=== PATIENT | female | born 1975 | race Caucasian/White ===

== ENCOUNTER 2020-12-10 08:22 | Inpatient (IN) ==
[2020-12-10] MEDS ORDERED: ONDANSETRON 4 MG/2 ML VIAL ONE (08:27)
[2020-12-10] MEDS ORDERED: HEPARIN 5,000 UNIT/1 ML VIAL ONE ×2 (08:28→08:42)
[2020-12-10] MEDS ORDERED: MORPHINE 4 MG/1 ML VIAL ONE (08:28)
[2020-12-10] MEDS ORDERED: ASPIRIN 325 MG TABLET ONE (08:28)
[2020-12-10] MEDS ORDERED: HEPARIN 5,000 UNIT/1 ML VIAL IV ONE (08:34)
[2020-12-10] MEDS ORDERED: ASPIRIN 325 MG TABLET PO STA (08:34)
[2020-12-10] MEDS ORDERED: MORPHINE 4 MG/1 ML VIAL IV STA (08:34)
[2020-12-10] MEDS ORDERED: ONDANSETRON 4 MG/2 ML VIAL IV STA (08:34)
[2020-12-10] MEDS ORDERED: HEPARIN/NACL 0.9% 2 UNITS/ML 2,000 UNIT/1,000 ML BAG IV ONE (08:35)
[2020-12-10] MEDS ORDERED: LIDOCAINE 1% 20 ML VIAL ONE (08:35)
[2020-12-10] MEDS ORDERED: EPTIFIBATIDE 20,000 MCG/10 ML VIAL ONE (08:44)
[2020-12-10] MEDS ORDERED: EPTIFIBATIDE 75 MG/100 ML BOTTLE IV ONE (08:44)
[2020-12-10 08:47] LABS: Basophils # 0.1 10*3/uL (0.0-0.2); Basophils % 0.8 % (0.0-0.8); Eosinophils # 0.2 10*3/uL (0.0-0.87); Eosinophils % 1.6 % (0.00-10.9); Hematocrit 40.8 VOL% (35.7-47.0); Hemoglobin 13.3 GM/DL (12.0-16.0); Immature Granulocytes % 0.3 %; Immature Granulocytes Absolute 0.04 #; Lymphocytes # 4.7 10*3/uL (1.4-4.0); Lymphocytes % 40.6 % (21.3-54.2); Mean Corpuscular HGB Conc 32.6 GM/DL (32-36); Mean Corpuscular Volume 91.3 FL (87-102); Mean Platelet Volume 10.8 FL (9.6-12.0); Monocytes % 8.3 % (1.7-12.7); Neutrophils % 48.4 % (38.7-73.9); Platelet Count 314 T/CUMM (130-400); Red Blood Count 4.47 MC/CUMM (3.8-5.5); Red Cell Distribution Width 13.2 % (9.3-17.3); White Blood Count 11.7 T/CUMM (4-12)
[2020-12-10] MEDS ORDERED: HEPARIN/NACL 0.9% 2 UNITS/ML 1,000 UNIT/500 ML BAG IV ONE (08:50)
[2020-12-10 08:54] LABS: INR 0.9; PT Patient Result 10.7 SECS (10.5-12.0); Partial Thromboplastin Time 24.2 SECS (23.9-33.8)
[2020-12-10] MEDS ORDERED: DOPamine 800 MG/250 ML PREMIX IV ONE (08:57)
[2020-12-10] MEDS ORDERED: MAGNESIUM SULF RIDER 4 GM/100 ML PREMIX IV PRN (08:58)
[2020-12-10] MEDS ORDERED: ONDANSETRON 4 MG/2 ML VIAL IV PRN (08:58)
[2020-12-10] MEDS ORDERED: MAGNESIUM SULF RIDER 2 GM/50 ML PREMIX IV PRN (08:58)
[2020-12-10] MEDS ORDERED: ALUMINUM/MAGNES/SIMETH MAX STR 30 ML UDCUP PO PRN (08:58)
[2020-12-10] MEDS ORDERED: ZALEPLON 5 MG CAPSULE PO PRN (08:58)
[2020-12-10] MEDS ORDERED: NICOTINE 21 MG/24 HR PATCH TRANSDERM PRN (08:58)
[2020-12-10] MEDS ORDERED: diphenhydrAMINE CAP 25 MG CAPSULE PO PRN (08:58)
[2020-12-10 09:01] LABS: Alanine Aminotransferase 23 U/L (13-56); Albumin 3.5 G/DL (3.4-5.0); Alkaline Phosphatase 102 U/L (45-117); Aspartate Amino Transferase 15 U/L (0-37); Bilirubin,Total < 0.39 MG/DL (0.2-1.0); Blood Urea Nitrogen 12 MG/DL (7-18); Calcium 8.8 MG/DL (8.5-10.1); Carbon Dioxide 22 MMOL/L (21-32); Estimated Glom Filtration Rate 81 ML/MIN; Glucose 151 MG/DL (74-106); Osmolality,Calculated 283.3 MOS/KG (273-304); Potassium 3.5 MMOL/L (3.5-5.1); Sodium 141 MMOL/L (136-145); Total Protein 6.4 G/DL (6.4-8.2)
[2020-12-10 09:07] LABS: Eosinophils 2 % (0-10); Hypochromasia 1+; Lymphocytes 45 % (20-55); Microcytosis 1+; Platelet Estimate Adequate; Segmented Neutrophils 42 % (50-85); Total Cells Counted 100
[2020-12-10 09:08] LABS: Atypical Lymphocytes Few
[2020-12-10] MEDS ORDERED: PROMETHAZINE 25 MG/1 ML VIAL ONE ×2 (09:09→09:10)
[2020-12-10] MEDS ORDERED: TICAGRELOR 90 MG TABLET ONE (09:35)
[2020-12-10 09:48] LABS: Risk Ratio 5.53; Thyroid Stimulating Hormone 1.46 uIU/ml (0.358-3.74); VLDL CHOLESTEROL 23.6 MG/DL
[2020-12-10] MEDS ORDERED: ACETAMINOPHEN 325 MG TABLET PO PRN (10:26)
[2020-12-10] MEDS ORDERED: MORPHINE 4 MG/1 ML VIAL IV PRN (10:26)
[2020-12-10] MEDS ORDERED: SODIUM CHLORIDE 0.9% 1,000 ML IV SCH (10:30)
[2020-12-10] MEDS ORDERED: PNEUMOCOCCAL VACCINE (23 VALENT) 0.5 ML VIAL IM ONE (13:47)
[2020-12-10] MEDS: PANTOPRAZOLE 40 MG TABLET PO SCH (15:30)
[2020-12-10] MEDS: ROSUVASTATIN 20 MG TABLET PO SCH (20:07)
[2020-12-10] MEDS: TICAGRELOR 90 MG TABLET PO SCH (20:08)
[2020-12-11 05:52] LABS: Basophils % 0.4 % (0.0-0.8); Eosinophils # 0.1 10*3/uL (0.0-0.87); Eosinophils % 0.7 % (0.00-10.9); Hematocrit 29.5 VOL% (35.7-47.0); Immature Granulocytes % 0.3 %; Immature Granulocytes Absolute 0.02 #; Lymphocytes # 1.9 10*3/uL (1.4-4.0); Mean Corpuscular HGB Conc 32.9 GM/DL (32-36); Mean Corpuscular Volume 91.6 FL (87-102); Mean Platelet Volume 11.1 FL (9.6-12.0); Monocytes % 7.7 % (1.7-12.7); Neutrophils % 65.9 % (38.7-73.9); Red Cell Distribution Width 13.3 % (9.3-17.3)
[2020-12-11 06:01] LABS: Albumin 2.8 G/DL (3.4-5.0); Bilirubin,Total 0.5 MG/DL (0.2-1.0); Calcium 8.1 MG/DL (8.5-10.1); Osmolality,Calculated 279.1 MOS/KG (273-304)
[2020-12-11 06:26] LABS: Hemoglobin 9.7 GM/DL (12.0-16.0); Platelet Count 186 T/CUMM (130-400); Red Blood Count 3.22 MC/CUMM (3.8-5.5); White Blood Count 7.7 T/CUMM (4-12)
[2020-12-11 06:29] LABS: Hypochromasia Slight; Microcytosis 1+
[2020-12-11 06:30] LABS: Platelet Estimate Adequate
[2020-12-11] MEDS: TICAGRELOR 90 MG TABLET PO SCH ×2 (09:11→20:12)
[2020-12-11] MEDS: ASPIRIN EC 81 MG TABLET PO SCH (09:11)
[2020-12-11] MEDS: PANTOPRAZOLE 40 MG TABLET PO SCH (09:11)
[2020-12-11] MEDS: carvediloL 6.25 MG TABLET PO SCH ×2 (09:11→20:12)
[2020-12-11 12:40] LABS: Basophils % 0.3 % (0.0-0.8); Eosinophils # 0.1 10*3/uL (0.0-0.87); Eosinophils % 1.1 % (0.00-10.9); Hematocrit 32.8 VOL% (35.7-47.0); Hemoglobin 10.5 GM/DL (12.0-16.0); Immature Granulocytes % 0.2 %; Immature Granulocytes Absolute 0.02 #; Lymphocytes # 2.8 10*3/uL (1.4-4.0); Lymphocytes % 29.9 % (21.3-54.2); Mean Corpuscular Volume 93.2 FL (87-102); Mean Platelet Volume 10.9 FL (9.6-12.0); Monocytes % 7.2 % (1.7-12.7); Neutrophils % 61.3 % (38.7-73.9); Platelet Count 214 T/CUMM (130-400); Red Blood Count 3.52 MC/CUMM (3.8-5.5); Red Cell Distribution Width 13.4 % (9.3-17.3); White Blood Count 9.4 T/CUMM (4-12)
[2020-12-11 13:03] LABS: Atypical Lymphocytes Few; Eosinophils 2 % (0-10); Lymphocytes 27 % (20-55); Segmented Neutrophils 67 % (50-85); Total Cells Counted 100
[2020-12-11 13:04] LABS: Platelet Estimate Normal
[2020-12-11] MEDS: ROSUVASTATIN 20 MG TABLET PO SCH (20:12)
[2020-12-12 06:08] LABS: Basophils % 0.4 % (0.0-0.8); Eosinophils # 0.1 10*3/uL (0.0-0.87); Eosinophils % 1.4 % (0.00-10.9); Hemoglobin 10.4 GM/DL (12.0-16.0); Immature Granulocytes % 0.4 %; Immature Granulocytes Absolute 0.03 #; Lymphocytes # 1.8 10*3/uL (1.4-4.0); Lymphocytes % 24.8 % (21.3-54.2); Mean Corpuscular HGB Conc 33.5 GM/DL (32-36); Mean Corpuscular Volume 90.9 FL (87-102); Monocytes % 7.8 % (1.7-12.7); Neutrophils % 65.2 % (38.7-73.9); Platelet Count 184 T/CUMM (130-400); Red Blood Count 3.41 MC/CUMM (3.8-5.5); Red Cell Distribution Width 13.2 % (9.3-17.3); White Blood Count 7.2 T/CUMM (4-12)
[2020-12-12 06:25] LABS: Calcium 8.7 MG/DL (8.5-10.1); Osmolality,Calculated 279.1 MOS/KG (273-304); Potassium 4.3 MMOL/L (3.5-5.1)
[2020-12-12 07:43] VITALS: BP 125/85
[2020-12-12] MEDS: TICAGRELOR 90 MG TABLET PO SCH (09:01)
[2020-12-12] MEDS: PANTOPRAZOLE 40 MG TABLET PO SCH (09:01)
[2020-12-12] MEDS: carvediloL 6.25 MG TABLET PO SCH (09:01)
[2020-12-12] MEDS: ASPIRIN EC 81 MG TABLET PO SCH (09:01)
== END 2020-12-12 11:40 | disposition home or self-care (01) | DRG 247 ==
LOC: EDBD → EDUNIT# → N.ED 08:22 → N.EDINP 08:38 → N.ICU 13:23
PROVIDERS: ADMIT Internal Medicine Cardiovascular Disease; ATTEND Internal Medicine Cardiovascular Disease
PROC: CLCCHCL (ICD-10-PCS; 2020-12-10 10:15)